=== PATIENT | male | born 1965 | race African-American/Black ===

== ENCOUNTER 2017-03-21 20:24 | Observation (INO) | payer OTHER ==
[~2017-03-21] VITALS: Ht 177.8 cm; Wt 94.0 kg
[~2017-03-21 20:24] MED LIST: 1-ME1LIQ PO; CETI10 PO; LISI-363 PO; OMEP20TA PO; RANI150T PO
[2017-03-21 20:26] VITALS: BP 153/95; PULSE 80; RESP 16; TEMP 98.7; O2SAT 97
--- NOTE | 2017-03-21 22:05 | PD ---
HPI Chief Complaint: Chest Pain Time Seen by Provider: 21:51 Travel History International Travel<30 days: No Contact w/Intl Traveler<30days: No Traveled to known affect area: No History of Present Illness HPI c/o intermittent chest pain 6/10, last episode 1 hour ago while at work, pressure, substernal , nonradiating. patient has not had any previous cardiac workup. pcp: elisha naylor pmhx: htn pshx:denies smoker 1/2 ppd x 20yrs, PFSH Past Medical History Asthma: Yes Diminished Hearing: No Hypertension: Yes Social History Alcohol Use: No Tobacco Use: No (QUIT 03/19/17) Substance Use: No Allergies-Medications (Allergen,Severity, Reaction): Coded Allergies: No Known Allergies (Unverified Adverse Reaction, Unknown, 03/21/17) Reported Meds & Prescriptions Reported Meds & Active Scripts Active Lisinopril 20 mg (Lisinopril) 20 Mg Tab 20 Mg PO BID Amlodipine Besylate 10 mg (Amlodipine Besylate) 10 Mg Tab 1 Tab PO DAILY Omeprazole 20 mg (Omeprazole) 20 Mg Tab 1 Tab PO BID Ranitidine 150 mg (Ranitidine HCl) 150 Mg Tab 1 Tab PO BID Zyrtec 10 Mg Tab (Cetirizine HCl) 10 Mg Tab 10 Mg PO DAILY Review of Systems General / Constitutional: No: Fever Eyes: No: Visual changes HENT: No: Headaches Cardiovascular: Positive: Chest Pain or Discomfort Respiratory: No: Shortness of Breath Gastrointestinal: No: Abdominal Pain Genitourinary: No: Dysuria Musculoskeletal: No: Pain Skin: No Rash Neurologic: No: Weakness Psychiatric: No: Depression Endocrine: No: Polydipsia Hematologic/Lymphatic: No: Easy Bruising Physical Exam Narrative GENERAL: SKIN: Warm and dry. HEAD: Atraumatic. Normocephalic. EYES: Pupils equal and round. No scleral icterus. No injection or drainage. ENT: No nasal bleeding or discharge. Mucous membranes pink and moist. NECK: Trachea midline. No JVD. CARDIOVASCULAR: Regular rate and rhythm. RESPIRATORY: No accessory muscle use. Clear to auscultation. Breath sounds equal bilaterally. GASTROINTESTINAL: Abdomen soft, non-tender, nondistended. MUSCULOSKELETAL: Extremities without clubbing, cyanosis, or edema. No obvious deformities. NEUROLOGICAL: Awake and alert. No obvious cranial nerve deficits. Motor grossly within normal limits. Five out of 5 muscle strength in the arms and legs. Normal speech. PSYCHIATRIC: Appropriate mood and affect; insight and judgment normal. Data Data Last Documented VS Vital Signs Date Time Temp Pulse Resp B/P (MAP) Pulse Ox O2 Delivery O2 Flow Rate FiO2 03/21/17 20:26 98.7 80 16 153/95 (114) 97 Room Air Orders Orders Electrocardiogram (03/21/17 ) MDM Medical Decision Making Medical Screen Exam Complete: Yes Emergency Medical Condition: Yes Medical Record Reviewed: Yes Interpretation(s) nsr 63, occasional pac, normal intervals, no stemi pattern Differential Diagnosis mi v nonstemi v pna v ptx Diagnosis Primary Impression: cp r/o mi Admitting Information Admitting Physician Requests: Corey Lopez MD Mar 21, 2017 22:05
[2017-03-21] MEDS ORDERED: SODIUM CHLORIDE 0.9% FLUSH 10 ML FLUSH IVF PRN (22:15)
[2017-03-21] MEDS ORDERED: ASPIRIN 81 MG CHEW TAB PO ONE (22:15)
[2017-03-21 22:34] VITALS: BP_SYST 117; BP_SYST 120; BP_DIAS 84; BP_DIAS 85; PULSE 75; RESP 20; O2SAT 100
--- NOTE | 2017-03-21 22:39 | RADRPT ---
EXAM DATE/TIME: 03/21/2017 22:15 [facility] COMPARISON: Report only CHEST PA & LAT, April 25, 2012, 15:01. INDICATIONS : Chest pain for two weeks. MEDICAL HISTORY : Hypertension. Smoker. SURGICAL HISTORY : None. ENCOUNTER: Initial ACUITY: 2 weeks PAIN SCORE: 5/10 LOCATION: Right chest FINDINGS: A single view of the chest demonstrates the lungs to be symmetrically aerated without evidence of mas s, infiltrate or effusion. The cardiomediastinal contours are unremarkable. Osseous structures are intact. CONCLUSION: No evidence of acute cardiopulmonary disease. Mode Petit MD on March 21, 2017 at 22:36 Board Certified Radiologist. This report was verified electronically.
[2017-03-21 22:42] LABS: AUTOMATED NEUTROPHIL # 2.5 TH/MM3 (1.8-7.7); BASOPHIL % 0.6 % (0.0-2.0); EOSINOPHIL # 0.1 TH/MM3 (0-0.4); EOSINOPHIL % 2.7 % (0.0-4.0); HEMOGLOBIN 14.6 GM/DL (13.0-17.0); LYMPH % 42.2 % (9.0-44.0); LYMPHOCYTE # 2.3 TH/MM3 (1.0-4.8); MEAN CORPUSCULAR HEMOGLOBIN 30.7 PG (27.0-34.0); MEAN CORPUSCULAR HGB CONC 34.9 % (32.0-36.0); MONO % 8.8 % (0.0-8.0); MONOCYTE # 0.5 TH/MM3 (0-0.9); NEUT % 45.7 % (16.0-70.0); PLATELET COUNT 225 TH/MM3 (150-450); RED BLOOD COUNT 4.77 MIL/MM3 (4.50-5.90); WHITE BLOOD COUNT 5.5 TH/MM3 (4.0-11.0)
[2017-03-21 22:59] LABS: ALKALINE PHOSPHATASE 121 U/L (45-117); PROTHROMBIN TIME - PATIENT 10.4 SEC (9.8-11.6); TOTAL BILIRUBIN ADULT 0.6 MG/DL (0.2-1.0); TOTAL PROTEIN 7.9 GM/DL (6.4-8.2); TROPONIN I LESS THAN 0.02 NG/ML (0.02-0.05)
[2017-03-21] MEDS ORDERED: NITROGLYCERIN 0.4 MG SL 25 TABS/BTL SL PRN (23:00)
[2017-03-21] MEDS ORDERED: SODIUM CHLORIDE 0.9% FLUSH 10 ML FLUSH IV FLUSH PRN (23:00)
[2017-03-21 23:01] LABS: ALT (GPT) 26 U/L (12-78); AST (GOT) 27 U/L (15-37); BICARBONATE 29.6 MEQ/L (21.0-32.0); BLOOD UREA NITROGEN 13 MG/DL (7-18); CALCIUM 8.6 MG/DL (8.5-10.1); CHLORIDE 107 MEQ/L (98-107); CREATININE 1.17 MG/DL (0.60-1.30); GLOMERULAR FILTRATION RATE 80 ML/MIN (>89); GLUCOSE,RANDOM 113 MG/DL (74-106); LIPASE 50 U/L (73-393); SODIUM (NA) 141 MEQ/L (136-145)
[2017-03-21 23:55] LABS: TROPONIN I LESS THAN 0.02 NG/ML (0.02-0.05)
[2017-03-22] MEDS ORDERED: LISI-515 PO (00:50)
[2017-03-22] MEDS ORDERED: OMEP20TA93 PO (00:50)
[2017-03-22] MEDS ORDERED: AMLO10TA2 PO (00:54)
[2017-03-22 01:14] VITALS: BP 124/81; PULSE 78; RESP 20; O2SAT 100
[2017-03-22 02:30] LABS: TROPONIN I LESS THAN 0.02 NG/ML (0.02-0.05)
[2017-03-22 05:09] VITALS: BP 108/69; PULSE 75; RESP 18; TEMP 97.8; O2SAT 95
[2017-03-22] MEDS ORDERED: ONDANSETRON HCL 4 MG/2 ML VIAL IV PUSH PRN (07:15)
[2017-03-22] MEDS ORDERED: NITROGLYCERIN 0.4 MG SL 25 TABS/BTL SL PRN (07:15)
[2017-03-22] MEDS ORDERED: ACETAMINOPHEN 500 MG CPLT PO PRN (07:15)
[2017-03-22 07:20] VITALS: BP 130/86; PULSE 73; RESP 18; TEMP 98; O2SAT 99
[2017-03-22 08:08] VITALS: PULSE 62
--- NOTE | 2017-03-22 08:31 | HHI.HP ---
HPI Primary Care Physician Khris Hanley MD Chief Complaint Chest pain History of Present Illness 51-year-old male with history of hypertension, GERD, the emergency room for further evaluation of chest pain. Onset one week. Pain began in left anterior chest described as dull, intermittent discomfort lasting "minutes." No known precipitating, relieving factors, or associated symptoms. Discomfort changed location to right upper chest x2 days ago. Characterized as sharp. Severity moderate. No radiation. Duration again "only minutes. No associated symptoms nausea, vomiting, diaphoresis. Endorses slight shortness of breath and hurting a deep breath. No known precipitating or relieving factors. No known injury or trauma. Denies similar pain in the past. Review of Systems General: No fatigue,weakness, fever, chills, recent illness, or change in appetite. Has been his general state of health. HEENT: No RAYO, no vision changes, no nasal congestion or drainage, no dysphasia CV: As stated above. No current chest pain, discomfort, or pressure. RESP: No SOB, cough, wheeze, or recent URI. GI: No nausea, vomiting, or bowel changes. No unintentional weight gain or weight loss : No dysuria, urgency, frequency, hematuria, or history of kidney stones EXT: No lower leg edema, no paraesthesias MS: No discomfort, change in ROM, injury, or trauma. NEURO: No change in memory, difficulty with balance, LOC, motor/sensory deficits PSYCH: No anxiety, depression SKIN: No rashes, no concerning lesions Past Family Social History Allergies: Coded Allergies: No Known Allergies (Unverified Allergy, Unknown, 03/21/17) Past Medical History Hypertension, GERD Past Surgical History None Reported Medications Reported Meds & Active Scripts Active Reported Amlodipine (Amlodipine Besylate) 10 Mg Tab 10 Mg PO DAILY Omeprazole 20 Mg Tab 20 Mg PO BID Lisinopril 20 Mg Tab 20 Mg PO BID Active Ordered Medications Current Medications Medications (Trade) Dose Ordered Sig/Herlinda Route Start Time Stop Time Status Last Admin (NS Flush) 2 ml UNSCH PRN IVF 03/21/17 22:15 (NS Flush) 2 ml UNSCH PRN IV FLUSH 03/21/17 23:00 (NS Flush) 2 ml BID IV FLUSH 03/22/17 09:00 03/21/17 23:44 (Nitrostat Sl) 0.4 mg Q5M PRN SL 03/21/17 23:00 (Aspirin) 325 mg DAILY PO 03/22/17 09:00 (Tylenol) 500 mg Q4H PRN PO 03/22/17 07:15 (Zofran Inj) 4 mg Q6H PRN IV PUSH 03/22/17 07:15 (Nitrostat Sl) 0.4 mg Q5M PRN SL 03/22/17 07:15 Family History Noncontributory for early onset cardiovascular disease. Social History Known hypertension. No known coronary artery disease, hyperlipidemia, or diabetes. Quit smoking 1.5 weeks ago. 10-15 pack year history. Endorses an active lifestyle. Past cardiac testing None Physical Exam Vital Signs Vital Signs Date Time Temp Pulse Resp B/P (MAP) Pulse Ox O2 Delivery O2 Flow Rate FiO2 03/22/17 07:20 98.0 73 18 130/86 (101) 99 03/22/17 05:09 97.8 75 18 108/69 (82) 95 03/22/17 04:22 Nasal Cannula 2.00 03/22/17 01:14 78 20 124/81 (95) 100 Nasal Cannula 2.00 03/21/17 22:34 75 20 117/84 (95) 100 Nasal Cannula 2.00 120/85 (97) 03/21/17 22:07 100 Nasal Cannula 2.00 03/21/17 20:26 98.7 80 16 153/95 (114) 97 Room Air Physical Exam GENERAL: Alert WN, WD, NAD, pleasant, male HEAD: NC, AT EYES: Sclera clear, conjunctiva without injection, pupils equal and round ENT: Mucous membranes pink and moist CV: Regular rate with some irregularity, regular rate, without murmur, rub, gallop, no JVD, S1-S2 no S3-S4. Chest wall nontender with palpation. RESP: Clear lungs throughout bilateral, no crackles, wheeze, rhonchi, symmetrical chest rise, nonlabored, able to speak in full sentences ABD: Soft, NT, ND, no masses, positive bowel tones EXT: Pulses +24, no dependent edema MS: Normal tone 4 extremities, no obvious deformities, full range of motion NEURO: CN II through CN XII grossly intact, motor strength 5/5, gait WNL PSYCH: A+O 3, pleasant affect, appropriate speech, mood, insight and judgment SKIN: Normal turgor, normal texture, no lesions, no rashes, brisk cap refill, even hair distribution Laboratory Laboratory Tests Test 03/21/17 22:05 03/21/17 22:25 03/22/17 01:55 White Blood Count 5.5 Red Blood Count 4.77 Hemoglobin 14.6 Hematocrit 42.0 Mean Corpuscular Volume 88.0 Mean Corpuscular Hemoglobin 30.7 Mean Corpuscular Hemoglobin Concent 34.9 Red Cell Distribution Width 13.0 Platelet Count 225 Mean Platelet Volume 8.0 Neutrophils (%) (Auto) 45.7 Lymphocytes (%) (Auto) 42.2 Monocytes (%) (Auto) 8.8 Eosinophils (%) (Auto) 2.7 Basophils (%) (Auto) 0.6 Neutrophils # (Auto) 2.5 Lymphocytes # (Auto) 2.3 Monocytes # (Auto) 0.5 Eosinophils # (Auto) 0.1 Basophils # (Auto) 0.0 CBC Comment DIFF FINAL Differential Comment Prothrombin Time 10.4 Prothromb Time International Ratio 1.0 Activated Partial Thromboplast Time 29.1 Blood Urea Nitrogen 13 Creatinine 1.17 Random Glucose 113 Total Protein 7.9 Albumin 4.0 Calcium Level 8.6 Alkaline Phosphatase 121 Aspartate Amino Transf (AST/SGOT) 27 Alanine Aminotransferase (ALT/SGPT) 26 Total Bilirubin 0.6 Sodium Level 141 Potassium Level 4.2 Chloride Level 107 Carbon Dioxide Level 29.6 Anion Gap 4 Estimat Glomerular Filtration Rate 80 Troponin I LESS THAN 0.02 LESS THAN 0.02 LESS THAN 0.02 Lipase 50 Total Creatine Kinase 301 277 Creatine Kinase MB 1.8 2.1 Result Diagram: 03/21/17220403/21/172204 Imaging Last 48 hours Impressions Chest X-Ray 03/21/172204 Signed Impressions: Service Date/Time: Tuesday, March 21, 2017 22:15 - CONCLUSION: No evidence of acute cardiopulmonary disease. Mode Petit MD Course EKG NSR, normal sinus arrhythmia, no st t segment changes Caprini VTE Risk Assessment Caprini VTE Risk Assessment: No/Low Risk (score <= 1) Caprini Risk Assessment Model Point Value = 1 Point Value = 2 Point Value = 3 Point Value = 5 Age 41-60 Minor surgery BMI > 25 kg/m2 Swollen legs Varicose veins or History of unexplained or recurrent spontaneous Oral contraceptives or hormone replacement Sepsis (< 1 month) Serious lung disease, including pneumonia (< 1 month) Abnormal pulmonary function Acute myocardial infarction Congestive heart failure (< 1 month) History of inflammatory bowel disease Medical patient at bed rest Age 61-74 Arthroscopic surgery Major open surgery (> 45 min) Laparoscopic surgery (> 45 min) Malignancy Confined to bed (> 72 hours) Immobilizing plaster cast Central venous access Age >= 75 History of VTE Family history of VTE Factor V Leiden Prothrombin [id number] Lupus anticoagulant Anticardiolipin antibodies Elevated serum homocysteine Heparin-induced thrombocytopenia Other congenital or acquired thrombophilia Stroke (< 1 month) Elective arthroplasty Hip, pelvis, or leg fracture Acute spinal cord injury (< 1 month) Prophylaxis Regimen Total Risk Factor Score Risk Level Prophylaxis Regimen 0-1 Low Early ambulation 2 Moderate Order ONE of the following: *Sequential Compression Device (SCD) *Heparin 5000 units SQ BID 3-4 Higher Order ONE of the following medications: *Heparin 5000 units SQ TID *Enoxaparin/Lovenox 40 mg SQ daily (WT < 150 kg, CrCl > 30 mL/min) *Enoxaparin/Lovenox 30 mg SQ daily (WT < 150 kg, CrCl > 10-29 mL/min) *Enoxaparin/Lovenox 30 mg SQ BID (WT < 150 kg, CrCl > 30 mL/min) AND/OR *Sequential Compression Device (SCD) 5 or more Highest Order ONE of the following medications: *Heparin 5000 units SQ TID (Preferred with Epidurals) *Enoxaparin/Lovenox 40 mg SQ daily (WT < 150 kg, CrCl > 30 mL/min) *Enoxaparin/Lovenox 30 mg SQ daily (WT < 150 kg, CrCl > 10-29 mL/min) *Enoxaparin/Lovenox 30 mg SQ BID (WT < 150 kg, CrCl > 30 mL/min) AND *Sequential Compression Device (SCD) Assessment and Plan Assessment and Plan #1 Atypical chest pain-admitted to chest pain center. Ruled out with 3 sets of ekgs, cardiac enzymes, and monitored overnight. Seen and evaluated by Dr. Tee Treviño. Reassurance provided discomfort does not suggest cardiac in nature. Proceed with exercise stressing due to multiple risks factors. If unremarkable, plans to discharge home with follow up with PCP. Patient agreeable to plan of care. #2 Tobacco use-strongly encouraged, stress the importance of tobacco cessation, and continue with efforts to become tobacco free. Verbalized understanding. #3 Hypertension-continue amlodipine and lisinopril, reinforced following a low sodium diet and increasing daily cardiovascular exercise. Melia Lara Mar 22, 2017 08:31
[2017-03-22] MEDS ORDERED: SODIUM CHLORIDE 0.9% FLUSH 10 ML FLUSH IV FLUSH SCH (09:00)
[2017-03-22] MEDS ORDERED: ASPIRIN 325 MG TAB PO SCH (09:00)
[2017-03-22 11:03] VITALS: BP 128/81; PULSE 77; RESP 18; TEMP 97.1; O2SAT 99
--- NOTE | 2017-03-22 11:06 | HHI.DCPOC ---
Discharge Care Plan Diagnosis: (1) Tobacco abuse (2) Atypical chest pain Goals to Promote Your Health * To prevent worsening of your condition and complications * To maintain your health at the optimal level Directions to Meet Your Goals Take your medications as prescribed Follow your dietary instruction Follow activity as directed Keep your appointments as scheduled Take your immunizations and boosters as scheduled If your symptoms worsen call your PCP, if no PCP go to Urgent Care Center or Emergency Room Smoking is Dangerous to Your Health. Avoid second hand smoke Call the 24-hour hour crisis hotline for domestic abuse at Melia Lara Mar 22, 2017 11:06
--- NOTE | 2017-03-22 15:01 | EKG ---
Date Performed: 03/22/2017 Time Performed: 03:40:22 PTAGE: 51 years EKG: Sinus rhythm WITH SINUS ARRHYTHMIA NORMAL ECG PREVIOUS TRACING : 03/21/2017 23.26 Since previous tracing, no significant change noted DOCTOR: Tee Treviño Interpretating Date/Time 03/22/2017 14:58:43
--- NOTE | 2017-03-22 15:12 | EKG ---
Date Performed: 03/21/2017 Time Performed: 23:26:24 PTAGE: 51 years EKG: Sinus rhythm WITH SINUS ARRHYTHMIA NORMAL ECG PREVIOUS TRACING : 03/21/2017 21.22 Since previous tracing, no significant change noted DOCTOR: Tee Treviño Interpretating Date/Time 03/22/2017 15:10:34
--- NOTE | 2017-03-22 15:13 | EKG ---
Date Performed: 03/21/2017 Time Performed: 21:22:36 PTAGE: 51 years EKG: Sinus rhythm WITH OCCASIONAL SUPRAVENTRICULAR PREMATURE COMPLEXES BORDERLINE ECG NO PREVIOUS TRACING DOCTOR: Tee Treviño Interpretating Date/Time 03/22/2017 15:12:25
--- NOTE | 2017-03-22 15:33 | TR ---
Date Performed: 03/22/2017 Time Performed: 10:25:21 DOCTOR: Tee Treviño DRUG LIST: CLINICAL HISTORY: REASON FOR TEST: Chest pain REASON FOR ENDING: OBSERVATION: CONCLUSION: Rolando protocol completed. Stopped sec to reaching target heart rate and leg fatigue. Maximum IS=348 Target HR Achieved=88.0% Maximum RX=644/82 Total Exercise Time=7:32. No reprod chest discomfort. No ectopy. No st segment changes to sugg ischemia. Normal bp response. Good exercise tole alexandra. Recovery quick and unremarkable. COMMENTS: Patient exercised using the Rolando protocol. No electrocardiographic changes were seen to suggest ischemia. Hemodynamic response to exercise was normal. No significant arrhythmia was prese nt.
== END 2017-03-22 12:02 | disposition home or self-care (01) ==
LOC: NEPD 20:24 → NEDA 23:03 → NEPFCDU 03-22 01:23
PROVIDERS: ADMIT Internal Medicine Interventional Cardiology; ATTEND Internal Medicine Interventional Cardiology
DX: R07.89 Other chest pain (principal); I10 Essential (primary) hypertension; I49.9 Cardiac arrhythmia, unspecified; K21.9 Gastro-esophageal reflux disease without esophagitis; J45.909 Unspecified asthma, uncomplicated; F17.200 Nicotine dependence, unspecified, uncomplicated; Z79.899 Other long term (current) drug therapy
CPT/HCPCS: 71045; 80053; 82550; 82552; 83690; 84484; 85025; 85610; 85730; 93005; 93017; 99285; G0378